=== PATIENT | female | born 1940 | race Caucasian/White ===

== ENCOUNTER 2020-07-02 10:28 | Outpatient (CLI) | payer MEDICARE, BC, SELFPAY ==
[2020-07-02 11:13] LABS: Hematocrit 40.3 % (37.0-47.0); Hemoglobin 13.6 g/dL (12.0-15.0); Mean Corpuscular HGB Conc 33.7 g/dl (32-36); Mean Corpuscular Hemoglobin 30.6 pg (26-34); Mean Corpuscular Volume 90.8 fl (80-100); Mean Platelet Volume 9.7 fl (7.4-10.4); Platelet Count Result 228 k/mm3 (150-375); Red Blood Count 4.44 M/mm3 (4.2-5.4); Red Cell Distribution Width 12.6 % (11.5-14.5); White Blood Count 5.8 K/mm3 (4.5-10.0)
[2020-07-02 11:23] LABS: Alanine Aminotransferase 19 U/L (4-35); Albumin Level 4.1 g/dL (3.5-5.1); Alkaline Phosphatase 54 U/L (38-126); Anion Gap 7 mmol/L (8-16); Aspartate Amino Transferase 36 U/L (14-36); Bilirubin,Total 0.7 mg/dL (0.2-1.3); Blood Urea Nitrogen 19 mg/dL (7-17); Calcium 9.3 mg/dL (8.4-10.2); Carbon Dioxide 29 mmol/L (22-30); Chloride 104 mmol/L (98-107); Cholesterol 245 mg/dL (0-200); Estimated Glomerular Filt Rate > 60; Glucose 101 mg/dL (65-105); HDL Direct 79 mg/dL; Potassium 4.3 mmol/L (3.4-5.0); Sodium 140 mmol/L (137-145); Triglycerides 107 mg/dL (<150)
[2020-07-02 11:33] LABS: LDL Cholesterol Direct 137 mg/dL
[2020-07-02 11:52] LABS: Vitamin D 25 Hydroxy 48.3 ng/mL
[2020-07-02 12:40] LABS: Free T4 Free Thyroxine Reflex 1.01 ng/dL (0.78-2.19)
[2020-07-02 13:23] LABS: Total Triiodothyronine (T3) 1.08 NG/ML (0.97-1.69)
== END 2020-07-02 10:29 | disposition home or self-care (01) ==
PROVIDERS: PCP Family Medicine; Visit Provider Family Medicine
DX: E03.9 Hypothyroidism, unspecified (principal); E78.2 Mixed hyperlipidemia; E55.9 Vitamin D deficiency, unspecified; I10 Essential (primary) hypertension
CPT/HCPCS: 36415; 80053; 80061; 82306; 84439; 84443; 84480; 85027

== ENCOUNTER 2020-12-02 13:33 | Outpatient (CLI) | payer MEDICARE, BC, SELFPAY ==
--- NOTE | ~2020-12-02 | MR_ITS ---
EXAMINATION: MR cervical spine wo con EXAM DATE: 12/02/2020 15:00 INDICATION: M54.12 - Radiculopathy, cervical region . TECHNIQUE: Multi-sequential, multiplanar MR images of the cervical spine were obtained without contra st. Axial T2, axial T2 MERGE sequence. Sagittal T1, T2, T2 fat saturation images also obtained. Th ere is no prior study for comparison. FINDINGS: Study is limited due to patient motion. There is moderate disc disease at C4-5 and 5-6, mi ld to moderate C6-7. There is 2 mm anterolisthesis C4 on C5 and C6 on C7. The spinal cord signal inte nsity and intrinsic morphology is normal. Cervicomedullary junction is normal in appearance. There ar e no suspicious marrow signal abnormalities. Paraspinal soft tissue is unremarkable. Level by level evaluation: C2-C3: Disc does not extend beyond the endplate margin. Uncovertebral joint arthropathy: Mild right. Facet joint arthropathy: Moderate right, mild left. Neural foraminal stenosis: Mild right. Central canal stenosis: No stenosis. C3-C4: There is a minimal diffuse disc bulge. Uncovertebral joint arthropathy: Mild bilateral. Facet joint arthropathy: Moderate to severe right, moderate left. Neural foraminal stenosis: Mild bilateral. Central canal stenosis: No stenosis. C4-C5: There is a mild diffuse disc bulge. Uncovertebral joint arthropathy: Mild to moderate bilateral. Facet joint arthropathy: Moderate to severe left, moderate right. Neural foraminal stenosis: Moderate left, mild to moderate right. Central canal stenosis: Mild. C5-C6: There is a mild diffuse disc bulge. Uncovertebral joint arthropathy: Severe left, moderate right. Facet joint arthropathy: Moderate bilateral. Neural foraminal stenosis: Probably moderate to severe left and moderate right. Central canal stenosis: Mild. C6-C7: There is a mild diffuse disc bulge. Uncovertebral joint arthropathy: Mild to moderate bilateral. Facet joint arthropathy: Moderate bilateral. Neural foraminal stenosis: No stenosis. Central canal stenosis: No stenosis. C7-T1: There is a minimal diffuse disc bulge. Uncovertebral joint arthropathy: Mild to moderate left, mild right. Facet joint arthropathy: Mild bilateral. Neural foraminal stenosis: No stenosis. Central canal stenosis: No stenosis. IMPRESSION: Mid cervical predominant spondylosis with the left C5-6 neural foramina most narrowed. Reviewed, dictated and finalized at location A. IMPRESSION: Mid cervical predominant spondylosis with the left C5-6 neural fora bonnie most narrowed.
== END 2020-12-02 13:34 | disposition home or self-care (01) ==
PROVIDERS: PCP Family Medicine; Visit Provider Family Medicine
DX: M47.22 Other spondylosis with radiculopathy, cervical region (principal)
CPT/HCPCS: 72141

== ENCOUNTER 2021-06-17 11:42 | Outpatient (CLI) | payer MEDICARE, BC, SELFPAY ==
[2021-06-17 12:29] LABS: Hematocrit 38.3 % (37.0-47.0); Hemoglobin 12.7 g/dL (12.0-15.0); Mean Corpuscular HGB Conc 33.2 g/dl (32-36); Mean Corpuscular Hemoglobin 31.6 pg (26-34); Mean Corpuscular Volume 95.3 fl (80-100); Mean Platelet Volume 9.6 fl (7.4-10.4); Platelet Count Result 201 k/mm3 (150-375); Red Blood Count 4.02 M/mm3 (4.2-5.4); Red Cell Distribution Width 12.1 % (11.5-14.5)
[2021-06-17 12:33] LABS: Alanine Aminotransferase 19 U/L (4-35); Albumin Level 4.5 g/dL (3.5-5.1); Alkaline Phosphatase 54 U/L (38-126); Anion Gap 7 mmol/L (8-16); Aspartate Amino Transferase 35 U/L (14-36); Bilirubin,Total 0.7 mg/dL (0.2-1.3); Blood Urea Nitrogen 14 mg/dL (7-17); Calcium 9.7 mg/dL (8.4-10.2); Carbon Dioxide 29 mmol/L (22-30); Chloride 105 mmol/L (98-107); Cholesterol 272 mg/dL (0-200); Estimated Glomerular Filt Rate > 60; Glucose 99 mg/dL (65-110); HDL Direct 83 mg/dL; Potassium 4.2 mmol/L (3.4-5.0); Sodium 141 mmol/L (137-145); Triglycerides 104 mg/dL (<150)
[2021-06-17 12:44] LABS: LDL Cholesterol Direct 147 mg/dL
[2021-06-17 13:10] LABS: Vitamin D 25 Hydroxy 50.3 ng/mL
[2021-06-17 13:21] LABS: Erythrocyte Sedimentation Rate 23 mm/hr (0-20)
== END 2021-06-17 11:43 | disposition home or self-care (01) ==
PROVIDERS: PCP Family Medicine; Visit Provider Family Medicine
DX: R53.83 Other fatigue (principal); I10 Essential (primary) hypertension; M25.50 Pain in unspecified joint; M54.12 Radiculopathy, cervical region; E78.2 Mixed hyperlipidemia; E55.9 Vitamin D deficiency, unspecified
CPT/HCPCS: 36415; 80053; 80061; 82306; 84443; 85027; 85652

== ENCOUNTER 2022-01-25 10:37 | Outpatient (CLI) | payer MEDICARE, SELFPAY ==
[2022-01-25 11:11] LABS: Hematocrit 40.8 % (37.0-47.0); Hemoglobin 13.4 g/dL (12.0-15.0); Mean Corpuscular HGB Conc 32.8 g/dl (32-36); Mean Corpuscular Hemoglobin 30.2 pg (26-34); Mean Corpuscular Volume 92.1 fl (80-100); Mean Platelet Volume 9.7 fl (7.4-10.4); Platelet Count Result 215 k/mm3 (150-375); Red Blood Count 4.43 M/mm3 (4.2-5.4); Red Cell Distribution Width 13.2 % (11.5-14.5); White Blood Count 5.2 K/mm3 (4.5-10.0)
[2022-01-25 11:24] LABS: Alanine Aminotransferase 20 U/L (6-35); Albumin Level 4.5 g/dL (3.5-5.1); Alkaline Phosphatase 53 U/L (38-126); Anion Gap 4 mmol/L (8-16); Aspartate Amino Transferase 36 U/L (14-36); Bilirubin,Total 0.4 mg/dL (0.2-1.3); Blood Urea Nitrogen 18 mg/dL (7-17); Calcium 9.2 mg/dL (8.4-10.2); Carbon Dioxide 30 mmol/L (22-30); Chloride 105 mmol/L (98-107); Cholesterol 269 mg/dL (0-200); Estimated Glomerular Filt Rate > 60; Glucose 105 mg/dL (65-110); HDL Direct 80 mg/dL; Potassium 4.9 mmol/L (3.4-5.0); Sodium 139 mmol/L (137-145); Triglycerides 95 mg/dL (<150)
[2022-01-25 11:35] LABS: LDL Cholesterol Direct 131 mg/dL
[2022-01-25 12:13] LABS: Vitamin B12 > 1000.0 pg/mL (239-931)
== END 2022-01-25 10:38 | disposition home or self-care (01) ==
PROVIDERS: PCP Family Medicine; Visit Provider Family Medicine
DX: R53.83 Other fatigue (principal); E78.5 Hyperlipidemia, unspecified; I10 Essential (primary) hypertension; E53.8 Deficiency of other specified B group vitamins; E55.9 Vitamin D deficiency, unspecified
CPT/HCPCS: 36415; 80053; 80061; 82306; 82607; 84443; 85027

== ENCOUNTER 2023-02-03 09:53 | Outpatient (CLI) | payer MEDICARE, SELFPAY ==
[2023-02-03 10:50] LABS: Hematocrit 40.5 % (37.0-47.0); Hemoglobin 13.3 g/dL (12.0-15.0); Mean Corpuscular HGB Conc 32.8 g/dl (32-36); Mean Corpuscular Hemoglobin 30.9 pg (26-34); Mean Platelet Volume 9.7 fl (7.4-10.4); Platelet Count Result 194 k/mm3 (150-375); Red Blood Count 4.31 M/mm3 (4.2-5.4); Red Cell Distribution Width 13.2 % (11.5-14.5); White Blood Count 5.6 K/mm3 (4.5-10.0)
[2023-02-03 11:07] LABS: Alanine Aminotransferase 23 U/L (6-35); Albumin Level 4.4 g/dL (3.5-5.1); Alkaline Phosphatase 51 U/L (38-126); Anion Gap 5 mmol/L (8-16); Aspartate Amino Transferase 37 U/L (14-36); Bilirubin,Total 0.7 mg/dL (0.2-1.3); Blood Urea Nitrogen 15 mg/dL (7-17); Calcium 8.7 mg/dL (8.4-10.2); Carbon Dioxide 30 mmol/L (22-30); Chloride 104 mmol/L (98-107); Cholesterol 272 mg/dL (0-200); Estimated Glomerular Filt Rate > 60; Glucose 96 mg/dL (65-110); HDL Direct 87 mg/dL; Potassium 4.6 mmol/L (3.4-5.0); Sodium 139 mmol/L (137-145); Triglycerides 112 mg/dL (<150)
[2023-02-03 11:18] LABS: LDL Cholesterol Direct 146 mg/dL
[2023-02-03 11:55] LABS: Vitamin B12 > 1000.0 pg/mL (239-931)
[2023-02-03 14:35] LABS: Vitamin D 25 Hydroxy 39.7 ng/mL
== END 2023-02-03 09:54 | disposition home or self-care (01) ==
PROVIDERS: PCP Family Medicine; Visit Provider Family Medicine
DX: E78.2 Mixed hyperlipidemia (principal); I10 Essential (primary) hypertension; R53.83 Other fatigue; E53.8 Deficiency of other specified B group vitamins; R20.2 Paresthesia of skin; E55.9 Vitamin D deficiency, unspecified
CPT/HCPCS: 36415; 80053; 80061; 82306; 82607; 84443; 85027

== ENCOUNTER 2024-03-28 09:34 | Outpatient (CLI) | payer MEDICARE, SELFPAY ==
[2024-03-28 10:14] LABS: Basophils Absolute Auto 0.1 K/mm3 (0.0-0.1); Basophils Percent Auto 0.8 % (0.2-1.2); Eosinophils Absolute Auto 0.2 K/mm3 (0-0.3); Eosinophils Percent Auto 2.9 % (0-4.4); Hematocrit 44.3 % (37.0-47.0); Hemoglobin 14.5 g/dL (12.0-15.0); Immature Granulocyte Absolute 0.04 K/mm3 (0.00-0.031); Immature Granulocyte Percent A 0.5 % (0-0.5); Lymphocytes Absolute Auto 1.49 K/mm3 (0.9-3.2); Lymphocytes Percent Auto 20.4 % (18.3-44.2); Mean Corpuscular HGB Conc 32.7 g/dl (32-36); Mean Corpuscular Volume 94.9 fl (80-100); Mean Platelet Volume 9.5 fl (7.4-10.4); Monocytes Absolute Auto 0.7 K/mm3 (0.1-0.6); Monocytes Percent Auto 8.9 % (2.6-8.5); Neutrophils Absolute Auto 4.9 K/mm3 (1.3-6.7); Neutrophils Percent Auto 66.5 % (45.5-73.1); Platelet Count Result 243 k/mm3 (150-375); Red Blood Count 4.67 M/mm3 (4.2-5.4); Red Cell Distribution Width 12.6 % (11.5-14.5); White Blood Count 7.3 K/mm3 (4.5-10.0)
[2024-03-28 10:29] LABS: Alanine Aminotransferase 29 U/L (6-35); Albumin Level 4.8 g/dL (3.5-5.1); Alkaline Phosphatase 49 U/L (38-126); Anion Gap 9 mmol/L (4-12); Aspartate Amino Transferase 40 U/L (14-36); Bilirubin,Total 0.7 mg/dL (0.2-1.3); Blood Urea Nitrogen 19 mg/dL (7-17); Calcium 9.3 mg/dL (8.4-10.2); Carbon Dioxide 31 mmol/L (22-30); Chloride 100 mmol/L (98-107); Cholesterol 192 mg/dL (0-200); Estimated Glomerular Filt Rate > 60; Glucose 100 mg/dL (65-110); HDL Direct 100 mg/dL; Potassium 3.8 mmol/L (3.4-5.0); Sodium 140 mmol/L (137-145); Triglycerides 68 mg/dL (<150)
[2024-03-28 10:40] LABS: LDL Cholesterol Direct 78 mg/dL
[2024-03-28 10:45] LABS: Hemoglobin A1C 5.6 % (<5.7)
[2024-03-28 11:00] LABS: Vitamin D 25 Hydroxy 61.1 ng/mL
== END 2024-03-28 09:35 | disposition home or self-care (01) ==
LOC: ANHLAB 09:36
PROVIDERS: PCP Family Medicine; Visit Provider Family Medicine
DX: E78.2 Mixed hyperlipidemia (principal); E55.9 Vitamin D deficiency, unspecified; E11.9 Type 2 diabetes mellitus without complications; I10 Essential (primary) hypertension; R53.83 Other fatigue
CPT/HCPCS: 36415; 80053; 80061; 82306; 83036; 84443; 85025

== ENCOUNTER 2024-06-19 10:27 | Outpatient (CLI) | payer MEDICARE, SELFPAY ==
--- NOTE | ~2024-06-19 | XR_ITS ---
EXAMINATION: XR UGIAC w small bowel DATE: 06/19/2024 12:42 INDICATION: Epigastric abdominal pain. TECHNIQUE: The patient drank thick barium, gas-producing crystals, and thin barium. Fluoroscopy of th e esophagus, stomach, and small bowel was performed. Fluoroscopy exposure time was 0.7 minutes. Radio graphs of the abdomen were obtained. The total number of images was 536. COMPARISON: None. FINDINGS: UPPER GASTROINTESTINAL SERIES: There is no mass or stricture of the esophagus. There is decreased primary and secondary esophageal p eristalsis. Abnormal tertiary waves are noted. There is no hiatal hernia. The stomach shows a normal folding pattern. SMALL BOWEL SERIES: The small bowel shows a normal folding pattern. Specifically, the terminal ileum is normal. Transit t liv to the colon was 1 hour. IMPRESSION: 1. Moderate esophageal dysmotility. 2. Normal small bowel series. Reviewed, dictated and finalized at location A.
== END 2024-06-19 10:28 | disposition home or self-care (01) ==
PROVIDERS: PCP Family Medicine; Visit Provider Nurse Practitioner
DX: K22.4 Dyskinesia of esophagus (principal); R10.13 Epigastric pain
CPT/HCPCS: 74246; 74248

== ENCOUNTER 2024-07-03 10:30 | Outpatient (CLI) | payer MEDICARE, SELFPAY ==
--- NOTE | ~2024-07-03 | US_ITS ---
EXAM: ABDOMEN ULTRASOUND HISTORY: epigastric pain COMPARISON: None FINDINGS: LIVER: The liver is unremarkable in echogenicity and size. The main portal vein is patent demonstrating hepatopedal flow GALLBLADDER: No stones are identified within the gallbladder. No gallbladder wall thickening or pericholecystic fluid. BILE DUCTS: Common bile duct measures 4.5mm. PANCREAS: Limited evaluation of the pancreas secondary to overlying bowel gas RIGHT KIDNEY: 8.7 cm. In length. No hydronephrosis or bulky renal calculi. VASCULATURE : The abdominal aorta is nonaneurysmal. The IVC is patent. IMPRESSION: Unremarkable sonographic evaluation of the right upper quadrant, as detailed above. Reviewed, dictated and finalized at location A. IMPRESSION: Unremarkable sonographic evaluation of the right upper quadrant, as detailed ab ove.
== END 2024-07-03 10:31 | disposition home or self-care (01) ==
PROVIDERS: PCP Family Medicine; Visit Provider Nurse Practitioner
DX: R10.13 Epigastric pain (principal)
CPT/HCPCS: 76705

== ENCOUNTER 2025-05-02 11:48 | Outpatient (CLI) | payer MEDICARE, SELFPAY ==
--- OUTSIDE RECORDS SUMMARY | 2025-05-02 11:53 | XMS_ITS | Encounter Summary ---
Author Organization [facility] Address [address] [place] [address] Care Team Providers Care Lpn Rn Hospice Name Role Phone Unavailable Primary Care Provider Unavailabl e Encounter Details Date Type Department Care Team (Late st Contact Info) Description 08/16/2023 Lab Requisition [facility] - DermPath Lab [address] [facility] [place] [address] Eliana Dawson DO [address] [facility] 3 [place] [address] Social History Tobacco Use Types Packs/Day Years Used Date Smoking Tobacco: Never Assessed Comments Unknown Sex and Gender Information Value Date Recorded Sex Assigned at Not on file Legal Sex Female 10:38 AM CDT Gender Identity Not on file Sexual Orientation Not on file documented as of this encounter Plan of Treatment Not on file documented as of this encounter Procedures Procedure Name Priority Date/Time Associated Diagnosis Comments DERMATOPATHOLOGY Routine 08/16/2023 10:3 4 AM BANQUET CAPTAIN documented in this encounter Results * DERMATOPATHOLOGY (08/16/2023 10:34 AM BANQUET CAPTAIN) Case Report Dermatopathology Report Case: [id number] Authorizing Provider: Eliana Dawson DO Collected: 08/16/2023 10:34 AM Ordering Location: [facility] DermPath Lab Received: 08/16/2023 04:29 PM Pathologist: Barbara Dean MD Specimens: A) - Skin, right upper cutaneous lip B) - Skin, left forearm 3 4:22 PM [facility] DERMATOPATHOLOGY LABORATORY Final Diagnosis Specimen A. 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 SKIN, left forearm: BASAL CELL CARCINOMA, NODULAR TYPE (C44.619) 3 4:22 PM [facility] DERMATOPATHOLOGY LABORATORY at [address] [facility] [[email or web address]] Clinical History A-B: R/O NMSC 3 4:22 PM [facility] [[email or web address]] DERMATOPATHOLOGY LABORATORY Gross Description Specimen A: Received is one formalin filled container labeled with the patient's name and designated right upper cutaneous lip. The specimen consists of a(2) pieces shave biopsy measuring 3x2x1, 3x2x1 mm. Jar 0. Specimen B: Received is one formalin filled container labeled with the patient's name and designated left forearm. The specimen consists of a shave biopsy measuring 5x4x1 mm. Jar 0. 3 4:22 PM [facility] [[email or web address]] DERMATOPATHOLOGY LABORATORY Microscopic Description Specimen A. SKIN, right upper cutaneous lip: Tissue sections display solar elastosis which abruptly transitions to fibrosis with coarse collagen bundles, and stellate fibroblasts. Ectatic vessels are also present. The epidermis is unremarkable. There is no evidence of epithelial dysplasia or malignancy on multiple deeper level sections. COMMENT: These findings may represent the superficial portions of an angiofibroma, though a scar remains a diagnostic consideration as well. Specimen B. SKIN, left forearm: Within the dermis there are aggregates of basaloid cells with a high nuclear to cytoplasmic ratio and peripheral palisading. 3 4:22 PM [facility] [[email or web address]] DERMATOPATHOLOGY LABORATORY Disclaimer An external and internal positive and negative controls are appropriate for the histochemical, immunohistochemical and immunofluorescence stain(s) in this case (if any), except where stated explicitly. The performance characteristics of the stain(s) cited in this report were developed and its performance characteristic determined by the Dermatopathology Laboratory at [facility], directed by Dr. Monica Ko. These tests need not be, and therefore are not, approved by the [place] Food and Drug Administration. The tests are used for clinical purposes. Billing Codes Specimen Charges Stain Charges 63314 35652 1 1 3 4:22 PM [facility] [[email or web address]] DERMATOPATHOLOGY LABORATORY Embedded Images 3 4:22 PM [facility] [[email or web address]] DERMATOPATHOLOGY LABORATORY Pathology/Cytology TISSUE SPECIMEN FROM SKIN / Unknown 08/16/2023 10:34 AM BANQUET CAPTAIN 08/16/2023 4:29 PM [facility] [[email or web address]] Miscellaneous samples (specimen) TISSUE SPECIMEN FROM SKIN / Unknown 08/16/2023 10:34 AM BANQUET CAPTAIN 08/16/2023 4:29 PM BANQUET CAPTAIN us Eliana Dawson DO LAB - PATHOLOGY/CYTOLOGY ORDERABLES Final Result DERMATOPATHOLOGY LABORATORY [facility] - Department of Dermatology [facility] Medicine [address] [place] [address], [address] [phone] documented in this encounter Visit Diagnoses Not on filedocumented in this encounter
--- OUTSIDE RECORDS SUMMARY | 2025-05-02 11:53 | XMS_ITS | Clinical Summary ---
Author Organization [facility] Address [address] [place] [address] Care Team Providers Care Platinum Smith Name Role Phone Unavailable Primary Care Provider Unavailabl e Source Comments [facility],non-owned Affiliates and Associated Physician Practices is amultiple site organization consisting of ambulatory clinics and hospital sitesin [place], [place], [place] and [place]. This disclosure is being madepursuant to the Care Everywhere program and may not contain all information available regarding this patient. Last updated 18.[facility] Social History Tobacco Use Types Packs/Day Years Used Date Smoking Tobacco: Never Assessed Comments Unknown Sex and Gender Information Value Date Recorded Sex Assigned at Not on file Legal Sex Female 10:38 AM CDT Gender Identity Not on file Sexual Orientation Not on file Plan of Treatment Health Maintenance Due Date Last Done Comments BONE DENSITY TESTING 1940 MEDICARE AWV 12 MONTHS 1940 DTAP/TDAP/TD VACCINES (1 - Tdap) 1958 PNEUMOCOCCAL VACCINE 50+ (1 of 1 - PCV) 1989 ZOSTER VACCINE (1 of 2) 1989 Respiratory Syncytial Virus (RSV) Vaccine Pt: or over 60 yrs (1 - 1-dose 75+ series) 2014 COVID-19 VACCINE ( - 2023-2 5 season) 2024 DEPRESSION SCREENING 09/11/2024 INFLUENZA VACCINE (#1) 2025 HEPATITIS B VACCINE Aged Out No longe r eligible based on patient's age to complete this topic HIB VACCINE Aged Out No longer eligi ble based on patient's age to complete this topic HPV VACCINE Aged Out No longer eligi ble based on patient's age to complete this topic MENINGOCOCCAL (Group B) VACC INE SHARED DECISION-MAKING Aged Out No longer eligibl e based on patient's age to complete this topic MENINGOCOCCAL GROUPS A/C/Y/W VACCINE Aged Out No longer eligible b ased on patient's age to complete this topic Insurance MEDICARE [facility] MEDICARE [facility]
--- OUTSIDE RECORDS SUMMARY | 2025-05-02 11:53 | XMS_ITS | Encounter Summary ---
Author Organization [facility] Address [address] [place] [address] Care Team Providers Care Drapery Head Former Name Role Phone Unavailable Primary Care Provider Unavailabl e Encounter Details Date Type Department Care Team (Late st Contact Info) Description 11/20/2019 Lab Requisition [facility] DermPath Lab [address] [facility] [address] [place] [place] [id number] Eliana Dawson DO [address] [facility] 3 [place] [address] Social History Tobacco Use Types Packs/Day Years [...] Priority Date/Time Associated Diagnosis Comments DERMATOPATHOLOGY Routine 11/19/2019 12:0 0 AM CDT documented in this encounter Results * DERMATOPATHOLOGY (11/19/2019 12:00 AM CDT) Case Report Dermatopathology Report Case: [id number] Authorizing Provider: Eliana Dawson DO Collected: 11/19/2019 12:00 AM Ordering Location: [facility] DermPath Lab Received: 11/20/2019 07:07 AM Pathologist: Sandra Ko MD Specimen: Skin, post scalp 0 2:40 PM CDT DERMATOPATHOLOGY LABORATORY Final Diagnosis Specimen A. SKIN, post scalp: BENIGN VERRUCOUS KERATOSIS (L82.1) EPIDERMAL NECROSIS SUGGESTIVE OF EXCORIATION (L98.499) 0 2:40 PM CDT DERMATOPATHOLOGY LABORATORY at 1440 CDT Clinical History [place] eroded papule. ISK R/O NMSC. 0 2:40 PM CDT DERMATOPATHOLOGY LABORATORY Gross Description Specimen A: Received is one formalin filled container labeled with the patient's name and designated post scalp. The specimen consists of a shave (2 pieces) measuring 3f9t2jp & 4q6s6mi. Jar 0. 0 2:40 PM CDT DERMATOPATHOLOGY LABORATORY Microscopic Description Specimen A. SKIN, post scalp: Sections show hyperkeratosis, papillomatosis, hypergranulosis, and acanthosis. These histological findings can be seen in a verruca vulgaris or a seborrheic keratosis. The epidermis is focally necrotic and covered with a scale-crust. There is fibrin at the base. 0 2:40 PM CDT DERMATOPATHOLOGY LABORATORY Disclaimer An external and internal positive and negative controls are appropriate for the histochemical, immunohistochemical and immunofluorescence stain(s) in this case (if any), except where stated explicitly. The performance characteristics of the stain(s) cited in this report were developed and its performance characteristic determined by the Dermatopathology Laboratory at [facility], directed by Dr. Monica Ko. These tests need not be, and therefore are not, approved by the [place] Food and Drug Administration. The tests are used for clinical purposes. Billing Codes Specimen Charges Stain Charges 99864 1 0 2:40 PM CDT DERMATOPATHOLOGY LABORATORY Embedded Images 0 2:40 PM CDT DERMATOPATHOLOGY LABORATORY Pathology/Cytolog y TISSUE SPECIMEN FROM SKIN / Unknown 11/19/2019 11/20/2019 7:07 AM CDT us Elaina Dawson DO LAB - PATHOLOGY/CYTOLOGY ORDERABLES Final Result DERMATOPATHOLOGY LABORATORY [facility] - Department of Dermatology [address] [facility], [place] [address] [place] [address], [facility] [phone] documented in this encounter Visit Diagnoses Not on filedocumented in this encounter
--- OUTSIDE RECORDS SUMMARY | 2025-05-02 11:53 | XMS_ITS | Clinical Summary ---
Author Organization [facility] Address [address] [place] [address] Care Team Providers Care Train Director Name Role Phone Juarez King MD Primary Care Provider [phone] Allergies Active Allergy Reactions Criticality Noted Date Comments Ciprofloxacin Rash Medium 01/05/2021 Reaction: RASH, , Medications cholecalciferol (VITAMIN D-3) 2,000 unit tablet daily Active naproxen (ALEVE) 220 mg tablet Active acetaminophen ER (TYLENOL) 650 mg 8 hr tablet Active lrwjqilg-qdz-FB- lycopen-lutein 0.4 mg-300 mcg- 250 mcg tablet Activ e doxycycline hyclate 100 mg capsule Take 100 mg by mouth daily Active metoprolol tartrate (LOPRESSOR) 25 mg immediate release tablet Take 25 mg by mouth 2 (two) times a day Active traMADoL (ULTRAM) 50 mg tablet Take 50 mg by mouth every 6 (six) hours as needed for pain Active ondansetron (ZOFRAN) 4 mg tablet Take 4 mg by mouth every 8 (eight) hours as needed for nausea or vomiting Active cyanocobalamin (Vitamin B-12) 1,000 mcg tabletIndication s:Prevention of Vitamin B12 Deficiency Take 1,000 mcg by mouth daily Active pyridoxine (VITAMIN B-6) 100 mg tablet Take 100 mg by mouth daily Active lysine 500 mg tablet 500 mg Active vit C/E/Zn/coppr/lut ein/zeaxan (PRESERVISION AREDS-2 ORAL) Take by mouth Ac tive calcium carbonate (OS-OLGA) 650 mg calcium (1,625 mg) tablet Take 1 tablet by mouth daily Active aspirin 81 mg enteric coated tablet Take 81 mg by mouth daily Active doxycycline monohydrate (ADOXA) 50 mg tablet Take 1 tablet (50 mg total) by mouth daily 4 Active alendronate (FOSAMAX) 70 mg tablet TAKE 1 TABLET BY MOUTH EVERY 7 DAYS WITH FULL GLASS OF WATER AND ON AN EMPTY STOMACH. 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 Immunizations Immunization Administration Dates Next Due Cell Therapy SARS-CoV-2 Monovalent Vaccination (12+ Yrs) PURPLE 11/14/2020,10/24/2020 Surgical History Surgery Date Site/Laterality Comments TONSILLECTOMY/ADENOIDECTOMY Tonsillectomy With Adenoidectomy - (Added by TW Conv) KNEE SURGERY Left Knee Surgery - (Added by TW Conv) Medical History Medical History Date Comments Personal history of other di seases of the circulatory system History of hypertension - (A dded by TW Conv) Personal history of other di seases of the musculoskeletal system and connective tissue History of osteopenia - (Add ed by TW Conv) Age-related osteoporosis wit hout current pathological fracture Osteoporosis - (Added by TW Conv) Family History Medical History Relation Name Comments Osteoporosis Maternal Grandmother Broken bones Mother Osteoporosis Mother Stroke Other 1 Stroke Syndrome - (Added by TW Conv) Hypertension Other 2 Hypertension - (Added by TW Conv) Heart disease Other 3 Heart Disease - (Added by TW Conv) Cancer Other 4 Cancer - (Added by TW Conv) Osteoporosis Paternal Grandmother Hip fracture Neg Hx Relation Name Status Comments Maternal Grandmother Mother Other 1 Other 2 Other 3 Other 4 Paternal Grandmother Social History Tobacco Use Types Packs/Day Years Used Date Smoking Tobacco: Never Smokeless Tobacco: Never Alcohol Use Standard Drinks/Week Comments Yes 0 (1 standard drink = 0.6 oz pur e alcohol) Occasionally Comments Unknown Sex and Gender Information Value Date Recorded Sex Assigned at Not on file Legal Sex Female 12:10 AM BUILDING SERVICES SUPERVISOR Gender Identity Female 10/17/2020 12:20 PM BUILDING SERVICES SUPERVISOR Sexual Orientation Straight 10/17/2020 12 :20 PM BUILDING SERVICES SUPERVISOR Obstetrics History Last Filed Vital Signs Vital Sign Reading Time Taken Comments Blood Pressure 192/103 01/14/2019 1:47 PM CDT Pulse 66 01/14/2019 1:47 PM CDT Temperature 36.7 C (98 F) 01/14/2019 12:22 PM CDT Respiratory Rate - - Oxygen Saturation - - Inhaled Oxygen Concentration - - Weight 51.7 kg (114 lb) 08/02/2022 1:26 PM BUILDING SERVICES SUPERVISOR Height 159.5 cm (5' 2.8) 08/02/2022 1:26 PM BUILDING SERVICES SUPERVISOR Body Mass Index 20.32 08/02/2022 1:26 PM BUILDING SERVICES SUPERVISOR Plan of Treatment Health Maintenance Due Date Last Done Comments Depression Screening 1940 Fall Risk Assessment 1940 Hepatitis B Screening 1957 Well Visit 65+ 2004 Covid-19 Vaccine (3 - 2023-2 5 season) 2024 11/14/2020, 10/24/2020 Influenza Vaccine (#1) 2025 , 07/04/2019, 07/08/2018, Additional history exists Osteoporosis Screening-Bone Density Scan 10/23/2025 10/23/2023, 08/02/2022, 07/26/2021, Additional history exists DTaP/Tdap/Td Vaccine (2 - Td or Tdap) 04/08/2027 04/08/2017 Pneumococcal vaccine 65+ Completed 12/20/2017, 03/12 Zoster Vaccine Completed 06/10/2019, 03/06/2019 Procedures Procedure Name Priority Date/Time Associated Diagnosis Comments DEXA TBS AXIAL SKELETON BONE DENSITY 1 OR MORE SITES Schedule Routine, Read Routine (OP Routine) 10/23/2023 11:25 AM BUILDING SERVICES SUPERVISOR Age-related osteoporosis without current pathological fracture from Last 3 Months or Most Recently Relevant to Health Maintenance Results * Dexa TBS Axial Skeleton Bone Density 1 or more sites (10/23/2023 11:25 AM BUILDING SERVICES SUPERVISOR) Anatomical Region Laterality Modality Wrist, Body N/A Radiographic Deepthi ging Narrative 10/23/2023 11:57 AM BUILDING SERVICES SUPERVISOR Patient Name: Nelli Maldonado Date of : 1940 Date of scan: 10/23/2023 Bone mineral density was performed on a [employer] Densitometer. Based on machine cross-calibration and precision studies the least significant changes of this densitometer is 0.024 g/cm2 at the spine, 0.020 g/cm2 at the total proximal femur, and 0.014g/cm2 at the forearm. HISTORY: This is a 83 y.o. postmenopausal female with a history of asthma, low bone mass, and vitamin D deficiency. She reports that she has never smoked. She has never used smokeless tobacco. Currently on treatment with calcium, vitamin D, and alendronate (Fosamax), previously treated with zoledronic acid (Reclast) and hormone replacement therapy, and current complaint of arm pain, back pain, neck pain, and leg pain. INDICATIONS: Menopause status, treatment monitoring, vitamin D deficiency, and history of low bone mass. FINDINGS: BONE MINERAL DENSITY OF THE LUMBAR SPINE Bone Mineral Density (BMD) of the lumbar spine was measured from L1-L4 and the average density was calculated to be 1.017 gm/cm2. This corresponds to a T-score (standard deviations from the mean of young adults) of -0.3. When compared to the previous study of 08/02/2022 there has been no significant changes in bone density. BONE MINERAL DENSITY OF THE PROXIMAL FEMUR Bone Mineral Density (BMD) of the left hip total was found to be 0.785 gm/cm2. This corresponds to a T-score standard deviations from the mean of young adults of -1.3. Femoral neck is 0.671 gm/cm2 with a T-score (standard deviations from the mean of young adults) of -1.6. When compared to the previous study of 08/02/2022 there has been no significant changes in bone density. BONE MINERAL DENSITY OF THE FOREARM Bone Mineral density (BMD) of the left proximal 1/3 of the radius measures 0.597 gm/cm2. This corresponds to a T-score (standard deviations from the mean of young adults) of -1.6. There is no previous study available for comparison. A forearm bone density study was performed in addition to the routine study at the request of the ordering physician. SUMMARY: Bone mineral density shows evidence of low bone mass at the proximal femur and forearm and moderately increased fracture risk (Osteopenia). There has been no significant changes in bone density since previous measurement. The lumbar spine Trabecular Bone Score is 1.275 which suggests partially degraded bone microarchitecture compared to the general population. Final decisions regarding diagnostic or therapeutic recommendations should include BMD, TBS, additional clinical risk factors as well the clinical context of the patient. Please see attached TBS results for further details. ADDITIONAL COMMENTS: Postmenopausal Women and Men Over 50: Diagnostic criteria: Osteoporosis: BMD at or below -2.5 T-score; Osteopenia (low bone mass): BMD between -1.0 and -2.5 T-score. If the patient has a history of a fragility fracture, a fracture that occurred with trauma equivalent to a fall from a standing position or less, then the diagnosis is osteoporosis regardless of bone density. The history and data sections of the bone mineral density scan were prepared by Venus Oro) SHIRLEY who is accredited by the International Society of Clinical Densitometry. The overall patient assessment and scan interpretation were performed by Marcus Etienne M.D. who is certified by the International Society of Clinical Densitometry. Marcus Etienne MD IMG DXA PROCEDURES Edited Resul t - Final from Last 3 Months or Most Recently Relevant to Health Maintenance Insurance MEDICARE [employer] ACCESS [place] MEDICARE MEDICARE [place] ACCESS [facility] Care Teams Train Director Relationship Specialty Start Date End Date Juarez King MD [address] [place] [address] PCP - General 01/08/18
[2025-05-02 12:41] LABS: Hematocrit 40.3 % (37.0-47.0); Hemoglobin 13.4 g/dL (12.0-15.0); Mean Corpuscular HGB Conc 33.3 g/dl (32-36); Mean Corpuscular Hemoglobin 31.3 pg (26-34); Mean Corpuscular Volume 94.2 fl (80-100); Platelet Count Result 200 k/mm3 (150-375); Red Blood Count 4.28 M/mm3 (4.2-5.4); White Blood Count 5.7 K/mm3 (4.5-10.0)
[2025-05-02 13:15] LABS: Alanine Aminotransferase 23 U/L (6-35); Albumin Level 4.4 g/dL (3.5-5.1); Alkaline Phosphatase 51 U/L (38-126); Anion Gap 6 mmol/L (4-12); Aspartate Amino Transferase 42 U/L (14-36); Bilirubin,Total 0.8 mg/dL (0.2-1.3); Blood Urea Nitrogen 15 mg/dL (7-17); Calcium 9.5 mg/dL (8.4-10.2); Carbon Dioxide 30 mmol/L (22-30); Chloride 104 mmol/L (98-107); Cholesterol 181 mg/dL (0-200); Estimated Glomerular Filt Rate > 60; Glucose 95 mg/dL (65-110); HDL Direct 91 mg/dL; Potassium 4.1 mmol/L (3.4-5.0); Sodium 140 mmol/L (137-145); Total Protein 7.6 g/dL (6.3-8.2); Triglycerides 81 mg/dL (<150)
== END 2025-05-02 11:49 | disposition home or self-care (01) ==
PROVIDERS: PCP Family Medicine; Visit Provider Family Medicine
DX: E78.2 Mixed hyperlipidemia (principal); I10 Essential (primary) hypertension; E78.5 Hyperlipidemia, unspecified; R53.83 Other fatigue; E55.9 Vitamin D deficiency, unspecified
CPT/HCPCS: 36415; 80053; 80061; 82306; 85027